=== PATIENT | male | born 1960 | race Asian ===

== ENCOUNTER 2016-02-23 13:42 | Inpatient (IN) | payer MEDICAID ==
[~2016-02-23] VITALS: Ht 177.8 cm; Wt 79.4 kg
[2016-02-23] MEDS ORDERED: PAMELOR10 MG ORAL (13:44)
[2016-02-23] MEDS ORDERED: GLIPIZIDE10 MG PO (13:44)
--- NOTE | 2016-02-23 14:35 | Emergency Room Report ---
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 he felt acutely weak was unable to stay up and fell to the ground He does not think that he had any loss of consciousness There was an abrasion on the right upper eyelid He reports at that happened several days ago when he was at [facility] patient was taken at that time he appeared normal Speaking further he reports several falls intermittently Patient is not quite sure what lead to the fall The last fall was essentially from a trip and fall on a wet floor Today's fall is unclear and essentially secondary to weakness He feels his strength back at this time in both lower extremities however still little bit weaker than usual Denies any fevers or chills denies any chest pain or shortness of breath Allergies: Coded Allergies: No Known Allergies (Unverified , 02/23/16) Patient History Past Medical History: see triage record Pertinent Family History: none Reviewed Nursing Documentation: PMH: Agreed, PSxH: Agreed Nursing Documentation-PMH Hx Diabetes: Yes Review of Systems All Other Systems: negative except mentioned in HPI Physical Exam Vital Signs Date Time Temp Pulse Resp B/P Pulse Ox O2 Delivery O2 Flow Rate FiO2 02/23/16 13:39 97.0 88 16 134/65 100 Room Air Sp02 EP Interpretation: reviewed, normal General Appearance: well appearing, no apparent distress Head: normocephalic, other - Abrasion right upper eyelid Eyes: bilateral eye EOMI, bilateral eye PERRL ENT: hearing grossly normal, normal pharynx, TMs + canals normal, uvula midline Neck: full range of motion, supple, no meningismus, no bony tend Respiratory: lungs clear, normal breath sounds, no rhonchi, no respiratory distress, no retraction, no accessory muscle use Cardiovascular #1: normal peripheral pulses, regular rate, rhythm, no edema, no gallop, no JVD, no murmur Gastrointestinal: normal bowel sounds, non tender, soft, no mass, no organomegaly, non-distended, no guarding, no hernia, no pulsatile mass, no rebound Genitourinary: no CVA tenderness Musculoskeletal: other - Patient able to lift both lower extremities dorsi flex and extend there is some dependent edema in both lower extremities, there appears to be an abrasion on both knees with the patient had a fall today Neurologic: oriented x3, responsive, shredder picker III-XII nml as tested, sensory intact Psychiatric: mood/affect normal Skin: palpation normal, other - as above Lymphatic: normal inspection, no adenopathy Medical Decision Making Diagnostic Impression: Primary Impression: Episode of generalized weakness Additional Impressions: Near syncope Lumbar canal stenosis ER Course Patient is a fairly complex patient with multiple differential to consideration including but not limited to cardiac cardiopulmonary and vascular emergencies Consideration for patient's L. spine pathology is also made given the acute lower extremity weakness Patient has improved significantly he has appropriate mobility of his lower extremity CT making does show some abnormal findings Patient appears to have had several syncopal/near syncopal episodes recently and at this time requires further inpatient care Labs Test 02/23/16 14:20 White Blood Count 5.6 K/UL (4.8-10.8) Red Blood Count 4.43 M/UL (4.70-6.10) Hemoglobin 14.1 G/DL (14.2-18.0) Hematocrit 43.0 % (42.0-52.0) Mean Corpuscular Volume 97 FL (80-99) Mean Corpuscular Hemoglobin 31.8 PG (27.0-31.0) Mean Corpuscular Hemoglobin Concent 32.8 G/DL (32.0-36.0) Red Cell Distribution Width 11.5 % (11.6-14.8) Platelet Count 234 K/UL (150-450) Mean Platelet Volume 6.8 FL (6.5-10.1) Neutrophils (%) (Auto) 70.6 % (45.0-75.0) Lymphocytes (%) (Auto) 21.5 % (20.0-45.0) Monocytes (%) (Auto) 6.1 % (1.0-10.0) Eosinophils (%) (Auto) 1.0 % (0.0-3.0) Basophils (%) (Auto) 0.7 % (0.0-2.0) Prothrombin Time 9.6 SEC (9.30-11.50) Prothromb Time International Ratio 0.9 (0.9-1.1) Activated Partial Thromboplast Time 32 SEC (23-33) Sodium Level 141 mEQ/L (135-145) Potassium Level 4.1 mEQ/L (3.4-4.9) Chloride Level 101 mEQ/L (98-107) Carbon Dioxide Level 25 mEQ/L (20-30) Anion Gap 15 (5-15) Blood Urea Nitrogen 21 mg/dL (7-23) Creatinine 0.7 mg/dL (0.7-1.2) Estimat Glomerular Filtration Rate > 60 mL/min (>60) Glucose Level 139 mg/dL (74-106) Calcium Level 9.0 mg/dL (8.6-10.2) Total Bilirubin < 0.2 mg/dL (0.0-1.2) Aspartate Amino Transf (AST/SGOT) 16 U/L (5-40) Alanine Aminotransferase (ALT/SGPT) 7 U/L (3-41) Alkaline Phosphatase 95 U/L (40-129) Total Creatine Kinase 184 U/L (38-174) Creatine Kinase MB 5.5 ng/mL (< 6.7) Creatine Kinase MB Relative Index 2.9 Troponin I < 0.30 ng/mL (<=0.30) Pro-B-Type Natriuretic Peptide 16 pg/mL (0-125) Total Protein 6.6 g/dL (6.6-8.7) Albumin 4.0 g/dL (3.5-5.2) Globulin 2.6 g/dL Albumin/Globulin Ratio 1.5 (1.0-2.7) Lipase 32 U/L (< 60) Rhythm Strip Diag. Results EP Interpretation: yes Rate: 67 Rhythm: NSR, no PVC's, no ectopy Chest X-Ray Diagnostic Results EP Interpretation: Yes Findings: no consolidation, no effusion, no pneumothorax Number of Views: 1 CT/MRI/US Diagnostic Results CT/MRI/US Diagnostic Results : Impression CT head no acute disease CTL spine: Pen lumbar degenerative spondylosis multilevel stenosis abnormal finding with MRI for further imaging Last Vital Signs Date Time Temp Pulse Resp B/P Pulse Ox O2 Delivery O2 Flow Rate FiO2 02/23/16 13:39 97.0 88 16 134/65 100 Room Air Status: improved Disposition: ADMITTED INPATIENT Condition: Serious RUBEN ALVARADO D.O. Feb 23, 2016 14:35
[2016-02-23 14:39] LABS: BASOPHILS % (AUTO) 0.7 % (0.0-2.0); LYMPHOCYTES % (AUTO) 21.5 % (20.0-45.0); MEAN CORPUSCULAR HEMOGLOBIN 31.8 PG (27.0-31.0); MEAN CORPUSCULAR HGB CONC 32.8 G/DL (32.0-36.0); MEAN CORPUSCULAR VOLUME 97 FL (80-99); MEAN PLATELET VOLUME 6.8 FL (6.5-10.1); MONOCYTES % (AUTO) 6.1 % (1.0-10.0); NEUTROPHILS % (AUTO) 70.6 % (45.0-75.0); PLATELET COUNT 234 K/UL (150-450); RED BLOOD COUNT 4.43 M/UL (4.70-6.10); RED CELL DISTRIBUTION WIDTH 11.5 % (11.6-14.8); WHITE BLOOD COUNT 5.6 K/UL (4.8-10.8)
[2016-02-23 14:47] LABS: INR 0.9 (0.9-1.1); PROTHROMBIN TIME 9.6 SEC (9.30-11.50)
[2016-02-23 15:01] LABS: TROPONIN I < 0.30 ng/mL (<=0.30)
[2016-02-23 15:07] LABS: ALANINE AMINOTRANSFERASE 7 U/L (3-41); ALBUMIN/GLOBULIN RATIO 1.5 (1.0-2.7); ANION GAP 15 (5-15); ASPARTATE AMINO TRANSFERASE 16 U/L (5-40); CARBON DIOXIDE 25 mEQ/L (20-30); CHLORIDE 101 mEQ/L (98-107); CREATININE 0.7 mg/dL (0.7-1.2); GLOMERULAR FILTRATION RATE > 60 mL/min (>60); HEMOLYSIS 11; LIPASE 32 U/L (< 60); POTASSIUM 4.1 mEQ/L (3.4-4.9); SODIUM 141 mEQ/L (135-145); TOTAL PROTEIN 6.6 g/dL (6.6-8.7)
[2016-02-23 15:13] LABS: CKMB 5.5 ng/mL (< 6.7)
[2016-02-23 15:33] VITALS: BP 118/61
--- NOTE | 2016-02-23 15:55 | History & Physical ---
History and Physical History & Physicial HP dictated # [id number] JAZMIN SEXTON Feb 23, 2016 15:55
[2016-02-23 18:30] VITALS: BP 127/80
[2016-02-23] MEDS ORDERED: Norco 5mg/325mg tab ORAL PRN (19:30)
[2016-02-23 20:00] VITALS: BP 121/72
[2016-02-23] MEDS: Norco 10mg/325mg tab ORAL PRN (21:28)
[2016-02-23] MEDS: NovoLOG Insulin Flexpen SUBQ SCH (22:40)
[2016-02-24 00:23] VITALS: BP 122/72
--- NOTE | 2016-02-24 02:17 | History and Physical Report ---
DATE OF ADMISSION: 02/23/2016 CHIEF COMPLAINT: Feeling of passing out and falling. HISTORY OF PRESENT ILLNESS: This is a 55-year-old [place] male, who said that his legs have been giving up and for the past week, he has fallen five times. [place] he was [place] for a taxi, he felt that his legs were giving up and he was about to fall. He could not walk and paramedics were called. The patient was brought into the emergency room. PAST MEDICAL HISTORY: Includes history of diabetes mellitus and depression. MEDICATIONS: Reviewed in EMR. SOCIAL HISTORY: The patient smokes about four cigarettes a day. No history of alcohol abuse. ALLERGIES: No known drug allergies. REVIEW OF SYSTEMS: Noncontributory. PHYSICAL EXAMINATION: GENERAL: The patient is a 55-year-old male, in no acute distress. VITAL SIGNS: Blood pressure is 118/61, pulse 70, and temperature 98.1. HEENT: [place] conjunctivae. Anicteric sclerae. NECK: Supple. LUNGS: Clear to auscultation. HEART: S1 and S2 without murmurs or rubs. ABDOMEN: Soft and nontender. EXTREMITIES: No cyanosis or edema. NEUROLOGICAL: The patient has some involuntary twitching of his legs. LABORATORY FINDINGS: The CBC shows a WBC of 5.6, hematocrit is 43, hemoglobin is 15.1, and platelets 234,000. Chemistry panel shows serum sodium 141, potassium 4.1, chloride 101, CO2 25, BUN 21, creatinine 0.7, blood sugar is 139, and albumin is 4. ASSESSMENT: This is a 55-year-old Romanian male, who was admitted with a feeling of his legs giving up. Differential diagnoses, transient ischemic attack versus peripheral neuropathy from diabetes, orthostatic hypotension has to be ruled out and also a central nervous disorder needs to be ruled out as well. PLAN: The patient will be hydrated with IV fluids. Blood sugar will be checked and adjustment will be made in the patient's regimen. The patient will be seen by neurologist, Dr. Vásquez. Further imaging studies will be ordered as needed. Also, I will check a B12 level and TSH level as a part of workup. Tung Rahban, M.D. DR: ISRAEL JOB#: [id number] CC:
[2016-02-24 04:18] VITALS: BP 124/72
[2016-02-24] MEDS: NovoLOG Insulin Flexpen SUBQ SCH ×4 (06:30→20:31)
[2016-02-24 07:52] VITALS: BP 131/79
--- NOTE | 2016-02-24 10:14 | Diagnostic Imaging Report ---
Indication: Chest pain Technique: Single portable AP view of the chest. Findings: Comparison: None. The bones and extra pulmonary soft tissues, cardiomediastinal silhouette, pulmonary vasculature and parenchyma, and pleural surfaces are unremarkable. IMPRESSION: Negative portable AP chest.
--- NOTE | 2016-02-24 10:17 | Diagnostic Imaging Report ---
Indications: Cephalgia Technique: Continuous helical CT imaging of the brain was performed with automatic exposure control on a Siemens sensation [address] scanner. Axial and coronal images were reconstructed at 5 mm slice thickness and interval. CTDI volume(s): 70 mGy Total DLP: 1432 mGy-cm Findings: Comparison: None. Intracranial anatomy is unremarkable. No evidence of mass or hemorrhage, other attenuation abnormality, mass effect, midline shift, hydrocephalus or increased intracranial pressure. Bone window images are unremarkable. Visualized paranasal sinuses and mastoid air cells are clear. IMPRESSION: Negative noncontrast CT scan of the brain . Written preliminary report placed in PACS 02/23/[address] scanner at [facility] is accredited by the [employer] and the scans are performed using protocols designed to limit radiation exposure to as low as reasonably achievable to attain images of sufficient resolution adequate for diagnostic evaluation.
--- NOTE | 2016-02-24 10:20 | Diagnostic Imaging Report ---
Indications: Low back pain, weakness Technique: Continuous helical CT imaging of the lumbar spine was performed with automatic exposure control on a Siemens sensation [address] scanner. Axial, coronal, and sagittal images were reconstructed at 3 mm slice thicknesses. CTDI volume(s): 13 mGy Total DLP: 393 mGy-cm Findings: Comparison: None Vertebral alignment is intact. No fracture, lytic destruction, facet subluxation or dislocation, paraspinous soft tissue mass/swelling/fluid, or other acute changes are identified. Prominent bridging osteophytes are present at the margins of each disc space without significant narrowing. The facet joints demonstrate varying degrees of hypertrophy and sclerosis. These findings result in apparent narrowing of the spinal canal most severe at L4-5 and to lesser degrees at additional levels, severe neural foraminal narrowing on the left at L5-S1 and to lesser degrees at additional levels. IMPRESSION: No evidence of acute lumbar abnormality Vasquez lumbar degenerative spondylosis with multilevel spinal stenosis most severe at L4-5, neural foraminal narrowing most severe on left at L5-S1. Neural impingement not excludable. Consider MRI for more sensitive evaluation. Written preliminary report placed in PACS 02/23/2016 at 1535
[2016-02-24 12:26] VITALS: BP 133/76
--- NOTE | 2016-02-24 14:33 | Consultation ---
Consult Note Consult Note NEUROLOGY CONSULTATION: Full note dictated #[id number] 55 y/o, RH, KM with PH of DM and gait problems for 5 years for which he uses a cane. He was brought to the [facility] ER on 02/23/16 for frequent falls due to his legs giving way. ON EXAM: Unable to cooperate for MS testing. Paraparesis with spasticity and G 4+/5 in the B - IP. Pathologically brisk DTRs with diminished ankle jerks. Extensor plantar responses bilaterally. CT of brain benign. CT of LS spine with L4-5 and L5-S1 stenosis. 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 Superimposed neuropathy. REC: MRI of C and LS spine. Labs for neuropathy. Pallvai Vásquez M.D., M.S.P.H. PALLAVI VÁSQUEZ Feb 24, 2016 14:33
--- NOTE | 2016-02-24 15:17 | General Progress Note ---
Assessment/Plan Problem List: (1) Weakness of both lower extremities ICD Codes: M62.81 - Muscle weakness (generalized) SNOMED: 0864750 (2) Near syncope ICD Codes: R55 - Syncope and collapse SNOMED: 370753279 (3) DM (diabetes mellitus) ICD Codes: E11.9 - Type 2 diabetes mellitus without complications SNOMED: 83467298 Qualifiers: (4) Depression ICD Codes: F32.9 - Major depressive disorder, single episode, unspecified SNOMED: 35720318 Assessment/Plan Await MRI PT Discussed with RN Subjective Allergies: Coded Allergies: No Known Allergies (Unverified , 02/23/16) Subjective In NAD Objective Last 24 Hour Vital Signs Date Time Temp Pulse Resp B/P Pulse Ox O2 Delivery O2 Flow Rate FiO2 02/24/16 12:26 97.3 66 18 133/76 100 Room Air 02/24/16 12:00 67 02/24/16 08:00 78 02/24/16 07:52 97.0 66 18 131/79 98 Room Air 02/24/16 04:18 97.0 72 20 124/72 98 Room Air 02/24/16 03:45 72 02/24/16 00:23 97.0 74 20 122/72 96 Room Air 02/24/16 00:15 73 02/23/16 21:03 84 02/23/16 20:00 97.8 81 18 121/72 97 Room Air 02/23/16 18:30 98.1 65 20 127/80 95 Room Air 02/23/16 17:24 98.1 78 18 128/61 99 Room Air 02/23/16 15:33 98.1 70 17 118/61 99 Room Air Intake and Output 02/23/16 02/24/16 19:00 07:00 Intake Total 500 ml 1000 ml Output Total 1000 ml Balance 500 ml 0 ml IV Total 1000 ml Other 500 ml Output Urine Total 1000 ml # Voids 2 Height (Feet): 5 Height (Inches): 10.00 Weight (Pounds): 175 Cardiovascular: normal rate Respiratory/Chest: lungs clear JAZMIN SEXTON Feb 24, 2016 15:17
[2016-02-24 16:00] VITALS: BP 149/76
--- NOTE | 2016-02-24 19:37 | Cardiology Report ---
APPROVED REPORT EKG Measurement Heart [id number] CT 136P55 [id number] Normal sinus rhythm Incomplete right bundle branch block Borderline ECG
[2016-02-24 20:00] VITALS: BP 129/68
[2016-02-24] MEDS: Norco 10mg/325mg tab ORAL PRN (23:47)
[2016-02-25 00:37] VITALS: BP_SYST 133
--- NOTE | 2016-02-25 03:58 | Consultation ---
DATE OF CONSULTATION: 02/24/2016 NEUROLOGY CONSULTATION CONSULTING PHYSICIAN: Lyndon Vásquez M.D. REQUESTING PHYSICIAN: Tung Delgadillo M.D. HISTORY: Mr. Stefan Quesada is a 55-year-old, right-handed, Romansh gentleman, who does have a past history of diabetes mellitus and gait problems for the last five years for which he uses a cane. He has been using the cane for about five years because his legs feel weak. Over the years, he has had multiple falls related to lower extremity weakness and recently these falls have become much more frequent. Yesterday, he was apparently [place] [employer] [place] and fell down and was unable to get up and walk again. As a result of that he was brought into the [facility] Emergency Room. Since he has been here, he feels a little better, but he is still quite unsteady on his feet. He does have some low back pain, but denies any significant neck pain or weakness in the upper extremities. He also complains of some altered sensations in his feet. PAST MEDICAL HISTORY: Significant for diabetes mellitus and gait problems. FAMILY HISTORY: Significant for diabetes mellitus in other family members. PERSONAL HISTORY: Home: He lives with family. Work: He is unemployed. Habits: He denies the use of alcohol, tobacco, or illicit drugs. He smokes approximately five cigarettes per day and has been smoking for numerous years. He denies the use of alcohol or illicit drugs. MEDICATIONS: Present medications include: 1. Aspart insulin. 2. Tylenol p.r.n. 3. [place]ot p.r.n. PHYSICAL EXAMINATION: GENERAL: He is a well-developed, well-nourished, pleasant, Romansh gentleman, lying in bed, in no acute distress. VITAL SIGNS: Pulse 66 per minute, blood pressure 133/76 mmHg, respirations 18 per minute, and temperature 97.3 degrees Fahrenheit. HEAD: Normocephalic and atraumatic. EENT: Examination, benign. NECK: No neck rigidity was observed. SPINE: Cervical, thoracic, and lumbosacral spine reveals no tenderness and no paraspinal muscle spasm, but decreased range of motion. NEUROLOGICAL EXAMINATION: MENTAL STATUS EXAMINATION: He was alert and awake. He was oriented to self and hospital. He was unable to cooperate for further mental status testing because of the fact that we were unable to get a Romansh sign language interpreter. SPEECH: He had no dysarthria. LANGUAGE: Could not be tested adequately. CRANIAL NERVE EXAMINATION: II: The visual wadsworth were intact to confrontation testing. III, IV & : The external ocular movements were full and the pupils 3 mm in diameter equal, round, regular, and reactive to light. V: He had normal facial sensations and the temporales, masseters, and pterygoids functioned normally. VII: He had normal facial expressions and no facial asymmetry. VIII: He was able to hear well bilaterally and had no nystagmus. IX: The palate moved symmetrically on phonation. X: He had no hoarseness of voice. XI: The sternocleidomastoids and trapezii functioned normally. XII: The tongue was in the midline without any fasciculations or atrophy. MOTOR SYSTEM: The tone was increased in both lower extremities with significant degree of spasticity. Examination of muscle mass revealed no focal wasting. Examination of power revealed grade 5/5 power, except for grade 4+/5 power in the iliopsoas muscles bilaterally. SENSORY EXAMINATION: He was able to discern between pinprick and light touch, but complained of subjective alteration in calf length stocking distribution. Position sense was normal in the fingers bilaterally, but was diminished in the toes bilaterally. REFLEXES: 2++ and bilaterally symmetrical at the biceps, triceps, and brachioradialis, 3+ at both knees, and 1+ at both ankles. The plantar responses were extensor bilaterally. COORDINATION: He performed well on dppsmy-am-pldy and qeeb-fr-qeve testing. Romberg test could not be performed because even with eyes open when he was made to stand with feet together, he was quite unsteady. STANCE: He stood up with support on one side. GAIT: He walked with support on one side with spastic paraparetic gait. DIAGNOSTIC IMPRESSION: 1. Mr. Stefan Quesada is a 55-year-old, right-handed, Romansh gentleman, who does have a past history of diabetes mellitus and gait problems for the last five years or so. Recently, he has been becoming more unsteady on his feet and has had frequent falls. He was hospitalized after one of these falls. 2. On neurological examination, at this time, he does have a spastic paraparesis, brisk deep tendon reflexes in the upper extremities with pathologically brisk knee jerks and diminished ankle jerks with extensor plantar responses bilaterally. He also has decreased position sense in the toes bilaterally, decreased sensations to pinprick and light touch in calf length stocking distribution bilaterally, a wide-based stance and a spastic paraparetic gait. 3. The CT scan of the brain without contrast performed on 02/22/2015 was benign. 4[address] The CT scan of the lumbosacral spine performed on 02/23/2016 revealed spinal stenosis at L4-L5 and L5-S1 levels. 5. Laboratory data obtained thus far have revealed a relatively normal CBC, a chemistry panel with an elevated blood glucose of 139 and an elevated CK of 184. 6. The patient's history, neurological examination, imaging studies, and laboratory data are most compatible with a spastic paraparesis with a component of spinal intermittent claudication. This is most probably related to cervical and lumbosacral spinal pathology. There is also a superimposed neuropathy which may be related to his diabetes or due to other reasons. RECOMMENDATIONS: 1. An MRI scan of the cervical and lumbosacral spine will be ordered to evaluate the patient for cervical and lumbosacral spine pathology. 2. Laboratory tests will be ordered to evaluate the patient for other treatable causes of neuropathy. 3. The patient should be started on physical and occupational therapy to mobilize him. 4. Depending on the results of the imaging and laboratory data, further recommendations will be given. Thank you for entrusting me with the care of Mr. Quesada. I shall follow him with you. Lyndon Vásquez M.D., M.S.P.H. DR: MATT JOB#: [id number] BEAU
[2016-02-25 04:18] VITALS: BP 122/72
[2016-02-25] MEDS: NovoLOG Insulin Flexpen SUBQ SCH ×4 (06:30→21:00)
[2016-02-25 08:00] VITALS: BP 119/82
[2016-02-25 08:35] LABS: THYROID STIMULATING HORMONE 0.662 uIU/mL (0.300-4.500)
--- NOTE | 2016-02-25 12:24 | General Progress Note ---
Assessment/Plan Problem List: (1) Weakness of both lower extremities ICD Codes: M62.81 - Muscle weakness (generalized) SNOMED: 1857589 (2) Near syncope ICD Codes: R55 - Syncope and collapse SNOMED: 706998076 (3) DM (diabetes mellitus) ICD Codes: E11.9 - Type 2 diabetes mellitus without complications SNOMED: 42932650 Qualifiers: (4) Depression ICD Codes: F32.9 - Major depressive disorder, single episode, unspecified SNOMED: 28024211 Assessment/Plan Await MRI PT Discussed withDr Vásquez Subjective Allergies: Coded Allergies: No Known Allergies (Unverified , 02/23/16) Subjective pt was found on the floor Objective Last 24 Hour Vital Signs Date Time Temp Pulse Resp B/P Pulse Ox O2 Delivery O2 Flow Rate FiO2 02/25/16 08:00 97.2 69 18 119/82 96 Room Air 02/25/16 08:00 97.2 69 18 119/82 96 Room Air 02/25/16 08:00 85 02/25/16 04:18 97.0 67 20 122/72 97 Room Air 02/25/16 04:00 65 02/25/16 00:37 97.0 72 20 133/ 97 Room Air 02/25/16 00:00 95 02/24/16 20:00 98.2 81 19 129/68 98 Room Air 02/24/16 20:00 74 02/24/16 16:00 85 02/24/16 16:00 97.9 78 19 149/76 100 Room Air 02/24/16 12:26 97.3 66 18 133/76 100 Room Air Intake and Output 02/24/16 02/25/16 19:00 07:00 Intake Total 2250 ml 1395 ml Balance 2250 ml 1395 ml Intake Oral 1050 ml 200 ml IV Total 1200 ml 1195 ml # Voids 2 4 Laboratory Tests 02/24/16 15:15: Erythrocyte Sedimentation Rate 9, Hemoglobin A1c 6.3H, Total Protein (PEP) [ Pending], Albumin (PEP) [Pending], Globulin (PEP) [Pending], Albumin/Globulin Ratio [Pending], Euzgd-1-Cxfqwchyq [Pending], Cezac-0-Vrfnpulul [Pending], Beta Globulins [Pending], Beta Gamma Globulin [Pending], PEP Abnormal Protein Bands [ Pending], Protein Electrophoresis Interpret [Pending], Vitamin D 25-Hydroxy [ Pending], 25-Hydroxy Vitamin D2 [Pending], 25-Hydroxy Vitamin D3 [Pending], Folate [Pending], Rapid Plasma Reagin [Pending] 02/25/16 07:10: Vitamin B12 Level 369, Thyroid Stimulating Hormone (TSH) 0.662 Height (Feet): 5 Height (Inches): 10.00 Weight (Pounds): 175 JAZMIN SEXTON Feb 25, 2016 12:24
--- NOTE | 2016-02-25 13:11 | Neurology Progress Note ---
Interim History Interim History Interim History Mr. Quesada feels about the same. His legs continue to be weak. He fell down this morning. He just got back from the MRI - the results are still pending. He denies any new neurologic symptoms. As per his aboriginal community council member he is mentally challenged and has never worked. Review of Systems Neuro Review of Systems Benign. Objective Physical Exam Last Vital Signs Date Time Temp Pulse Resp B/P Pulse Ox O2 Delivery O2 Flow Rate FiO2 02/25/16 08:00 97.2 69 18 119/82 96 Room Air Laboratory Tests Test 02/24/16 15:15 02/25/16 07:10 Erythrocyte Sedimentation Rate 9 MM/HR (0-20) Hemoglobin A1c 6.3 % (< 6.0) H Total Protein (PEP) Pending Albumin (PEP) Pending Globulin (PEP) Pending Albumin/Globulin Ratio Pending Rhozy-0-Fxkydknbv Pending Guhnt-1-Rfviexykr Pending Beta Globulins Pending Beta Gamma Globulin Pending PEP Abnormal Protein Bands Pending Protein Electrophoresis Interpret Pending Vitamin D 25-Hydroxy Pending 25-Hydroxy Vitamin D2 Pending 25-Hydroxy Vitamin D3 Pending Folate Pending Rapid Plasma Reagin Pending Vitamin B12 Level 369 pg/mL (211-946) Thyroid Stimulating Hormone (TSH) 0.662 uIU/mL (0.300-4.500) Neurologic Exam Objective PHYSICAL EXAMINATION: GENERAL: He is a well-developed, well-nourished, pleasant, [place] gentleman, sitting up in a chair, in no acute distress. HEAD: Normocephalic and atraumatic. EENT: Examination, benign. NECK: No neck rigidity was observed. SPINE: Cervical, thoracic, and lumbosacral spine reveals no tenderness and no paraspinal muscle spasm, but decreased range of motion. NEUROLOGICAL EXAMINATION: MENTAL STATUS EXAMINATION: He was alert and awake. He was oriented to self, [facility], and February 2016. SPEECH: He had no dysarthria. LANGUAGE: He had no aphasia in Danish as per his aboriginal community council member. CRANIAL NERVE EXAMINATION: II: The visual wadsworth were intact to confrontation testing. III, IV & : The external ocular movements were full and the pupils 3 mm in diameter equal, round, regular, and reactive to light. V: He had normal facial sensations and the temporales, masseters, and pterygoids functioned normally. VII: He had normal facial expressions and no facial asymmetry. VIII: He was able to hear well bilaterally and had no nystagmus. IX: The palate moved symmetrically on phonation. X: He had no hoarseness of voice. XI: The sternocleidomastoids and trapezii functioned normally. XII: The tongue was in the midline without any fasciculations or atrophy. MOTOR SYSTEM: The tone was increased in both lower extremities with significant degree of spasticity. Examination of muscle mass revealed no focal wasting. Examination of power revealed grade 5/5 power, except for grade 4+/5 power in the iliopsoas muscles bilaterally. SENSORY EXAMINATION: He was able to discern between pinprick and light touch, but complained of subjective alteration in calf length stocking distribution. Position sense was normal in the fingers bilaterally, but was diminished in the toes bilaterally. REFLEXES: 2++ and bilaterally symmetrical at the biceps, triceps, and brachioradialis, 3+ at both knees, and 1+ at both ankles. The plantar responses were extensor bilaterally. COORDINATION: He performed well on xxrxgi-hu-liks and obnv-jn-rhwc testing. Romberg test could not be performed because even with eyes open when he was made to stand with feet together, he was quite unsteady. STANCE: He stood up with support on one side. GAIT: He walked with support on one side with spastic paraparetic gait. Impression/Recommendations Diagnostic Impression 1. Mr. Stefan Quesada is a 55-year-old, right-handed, [place] gentleman, who does have a past history of diabetes mellitus and gait problems for the last five years or so. Recently, he has been becoming more unsteady on his feet and has had frequent falls. He was hospitalized after one of these falls. 2. He feels about the same as yesterday. The legs are still weak and he took a fall this morning. 3. 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 He also has decreased position sense in the toes bilaterally, decreased sensations to pinprick and light touch in calf length stocking distribution bilaterally, a wide-based stance and a spastic paraparetic gait. 4. The CT scan of the brain without contrast performed on 02/22/2015 was benign. 5. The CT scan of the lumbosacral spine performed on 02/23/2016 revealed spinal stenosis at L4-L5 and L5-S1 levels. 6. Laboratory data obtained thus far have revealed a relatively normal CBC, a chemistry panel with an elevated blood glucose of 139 and an elevated CK of 184. His B 12 level is low at 369. 7. The patient's history, neurological examination, imaging studies, and laboratory data are most compatible with a spastic paraparesis with a component of spinal intermittent claudication. This is most probably related to cervical and lumbosacral spinal pathology. 8. There is also a superimposed neuropathy which may be related to his diabetes and B12 deficiency. Recommendations 1. Await results of MRI scan of the cervical and lumbosacral spine - just completed. 2. Vitamin B12 - 1000 mcg SC daily x 3 days and then monthly. 3. Physical and occupational therapy to mobilize him. 4. Await results of other tests. Pallavi Vásquez M.D., M.S.P.PALLAVI BACON Feb 25, 2016 13:11
--- NOTE | 2016-02-25 13:37 | Diagnostic Imaging Report ---
Indications: Neck pain, lower extremity weakness/spastic hemiparesis Technique: Sagittal STIR and T1 weighted fast spin-echo, sagittal and axial T2 weighted fast spin echo, axial COSMIC ASPIR sequences of the cervical spine were performed without IV gadolinium administration. Findings: Comparison: None Motion artifact substantially degrades all images, limiting evaluation. The spinal canal appears diffusely, congenitally narrowed. The C1-C2 level demonstrates mild hypertrophy of the retro-ocular soft tissues.. Occipital-C1 and C1-2 alignments are intact. Spinal canal, lateral recesses and neural foramina not significantly narrowed. The C2-C3 disc is normal in height and signal. No significant annular bulge/protrusion or marginal osteophyte formation. Facet joints and ligamenta flava are unremarkable. Spinal canal, lateral recesses and neural foramina not significantly narrowed. The C3-C4 disc is normal in height and signal. Broad-based central posterior protrusion.. Facet joints and ligamenta flava are unremarkable. Spinal canalnarrowed to 8 mm AP diameter. Spinal cord abutted and displaced posteriorly without overt compression. Right neural foramen moderately to severely narrowed. Lateral recesses mildly narrowed, left greater than right. Left neural foramen is not significantly narrowed. The C4-C5 disc mildly decreased in height. Circumferential annular bulge with mild marginal osteophyte formation.. Facet joints and ligamenta flava are unremarkable. Spinal canalnarrowed to 7 mm AP diameter. Spinal cord is abutted, displaced posteriorly, and mildly compressed. Lateral recesses mildly narrowed.. Neural foramina not significantly narrowed. The C5-C6 disc normal in height.. Circumferential annular bulge with marginal osteophyte formation.. Facet joints and ligamenta flava are unremarkable. Spinal canalnarrowed to 4-5 mm AP diameter. Spinal cord significantly compressed. Lateral recesses and neural foramina mildly narrowed bilaterally.. The C6-C7 disc normal in height.. Circumferential annular bulge, superimposed broad-based posterior protrusion.. Facet joints and ligamenta flava are unremarkable. Spinal canalnarrowed to 3 mm AP diameter. Spinal cord severely compressed. Lateral recesses moderately to severely narrowed bilaterally, left greater than right. Neural foramina not significant narrowing.. The C7-T1 disc is normal in height and signal. Prominent broad-based central posterior protrusion. Facet joints and ligamenta flava are unremarkable. Spinal canalnarrowed to 5 mm AP diameter. Spinal cord significantly compressed. Lateral recesses mildly narrowed bilaterally. Neural foramina are not significantly narrowed.. Spinal cord is difficult to evaluate for signal change due to motion.. No intradural or extradural masses or fluid collections are demonstrated. The cervical vertebrae are normal in configuration and marrow signal characteristics , aside from degenerative changes described above. Lordotic curvature straightened. Vertebral alignment is intact. No fracture, lytic destruction, or other acute process is demonstrated. Paraspinous soft tissues are unremarkable. IMPRESSION: Multilevel severe degenerative disc disease superimposed on congenital spinal stenosis, as described in detail level by level above. This results in multilevel moderate to severe spinal stenosis, multilevel cord compression, lateral recess and neural frontal narrowing as described. Intrinsic spinal cord abnormality difficult to ascertain due to technical limitations described.
[2016-02-25 16:00] VITALS: BP 137/70
[2016-02-25 20:00] VITALS: BP 134/68
[2016-02-26] VITALS: BP 132/73
[2016-02-26] MEDS: Norco 10mg/325mg tab ORAL PRN (00:15)
[2016-02-26 02:28] VITALS: BP 138/78
[2016-02-26] MEDS ORDERED: Norco 10mg/325mg tab ORAL PRN (03:30)
[2016-02-26] MEDS ORDERED: Norco 5mg/325mg tab ORAL PRN (03:30)
[2016-02-26 04:00] VITALS: BP 136/83
[2016-02-26] MEDS: NovoLOG Insulin Flexpen SUBQ SCH ×2 (06:10→12:14)
[2016-02-26 08:09] VITALS: BP 140/63
[2016-02-26 11:11] LABS: A/G RATIO 1.4 (0.7-1.7); ABNORMAL PROTEIN BAND 1 Not Observed g/dL (Not Observed); ALBUMIN 3.7 g/dL (2.9-4.4); ALPHA-1 GLOBULIN 0.2 g/dL (0.0-0.4); ALPHA-2 GLOBULIN 0.5 g/dL (0.4-1.0); BETA GLOBULIN 0.9 g/dL (0.7-1.3); GAMMA GLOBULIN 1.1 g/dL (0.4-1.8); GLOBULIN, TOTAL 2.7 g/dL (2.2-3.9); TOTAL PROTEIN 6.4 g/dL (6.0-8.5)
[2016-02-26 12:07] VITALS: BP 134/67
--- NOTE | 2016-02-26 13:55 | Consultation ---
Consult Note Assessment/Plan Dc dictated # [id number] JAZMIN SEXTON Feb 26, 2016 13:55
--- NOTE | 2016-02-26 15:57 | Diagnostic Imaging Report ---
Indications: Back pain, lower extremity weakness/spastic hemiparesis Technique: Sagittal STIR, sagittal and axial T1 weighted and T2 weighted fast spin echo sequences of the lumbar spine were performed without IV gadolinium administration. Findings: Comparison: None Motion artifact degrades all images, limiting evaluation. The L1-2 disc is normal in height and signal. Mild circumferential annular bulge, anterior margin osteophyte formation.. Facet joints and ligamenta flava mildly hypertrophied.. Spinal canal, lateral recesses and neural foramina are normal in caliber. The L2-3 disc normal height, decreased signal. Mild circumferential annular bulge, anterior margin osteophyte formation.. Facet joints and ligamenta flava moderately hypertrophied.. Spinal canalnarrowed to 10 mm AP diameter. Lateral recesses mildly narrowed. Neural foramina are normal in caliber. The L3-4 disc mildly decreased in height, heterogeneous in signal. Prominent focal area of T2 signal hyperintensity and age-appropriate disc.. Mild circumferential annular bulge.. Facet joints and ligamenta flava mildly hypertrophied. Spinal canal, neural foramina normal caliber. Lateral recesses mildly narrowed.. The L4-L5 disc normal height, decreased signal. Circumferential annular bulge with marginal osteophyte formation.. Facet joints and ligamenta flava mildly hypertrophied, right greater than left.. Spinal canalnormal caliber. Lateral recesses, neural foramina moderately narrowed bilaterally.. The L5-S1 disc is normal in height and signal. Mild circumferential annular bulge.. Facet joints and ligamenta flava are mildly hypertrophied.. Spinal canalnormal caliber. Lateral recesses mildly, neural foramina moderately narrowed bilaterally. . Spinal cord ends at T12-L1. Conus medullaris, cauda equina, remainder of thecal sac contents intrinsically unremarkable. No intradural or extradural masses or fluid collections are demonstrated. The lumbar vertebrae are normal in configuration and marrow signal characteristics , aside from degenerative changes described above. No fracture, lytic destruction, or other acute process is demonstrated. Paraspinous soft tissues are unremarkable. IMPRESSION: Vasquez lumbar degenerative disc disease, facet and ligamentous hypertrophy as described in detail level by level above. Associated grade 3 annular tear at L3-4 No significant spinal stenosis Multilevel lateral recess and neural foraminal narrowing as described above. Impingement upon one or more descending/exiting nerve roots should be considered. Correlate clinically.
[2016-02-26 16:00] VITALS: BP 123/67
--- NOTE | 2016-02-27 03:47 | Discharge Summary ---
DATE OF ADMISSION: 02/23/2016 DATE OF DISCHARGE: 02/26/2016 CHIEF COMPLAINT: Feeling of falling. HISTORY OF PRESENT ILLNESS: This is a 55-year-old Maced[place] male who was admitted for frequent falls. For the details, please refer to History and Physical. HOSPITAL COURSE: The patient was seen by Dr. Lyndon Vásquez in neurology consultation. His impression was the patient had a spastic paraparesis. An MRI of the neck was ordered and significant findings were that there was multiple narrowing of the spinal cord at C3-C4. There was spinal canal narrowed to 8 mm and there was the AP diameter of the spinal cord abutted and displaced posteriorly without overt compression. Right neural foramen [id number]-yz-[id number] narrowed. Lateral recess was mildly narrowed, left greater than right. Left neural foramen was not significantly narrowed at C4-C5. This mildly decreased in height. There was a spinal cord narrowing to 7 mm AP diameter, small spinal cord was abutted, displaced posteriorly, it might be compressed. Lateral recess was mildly narrowed. Neural foramen was not significantly narrowed at C5-C6. There was annular bulge with marginal osteophyte formation. The spinal canal narrowed to 4-5 mm. AP diameter of spinal cord was significantly compressed. Lateral recesses and neural foramen were mildly narrowed bilaterally at C6-C7. There was circumferential annular bulge, superimposed broad-based posterior protrusion. Spinal canal was narrowed to 3 mm AP diameter and spinal cord severely compressed. The lateral recesses was nbjlkdtgjw-ab-cusdlj narrowed bilaterally, left greater than right. Neural foramen was not significantly narrowed at C7 and T1. There was also prominent broad-based central posterior protrusion. Spinal canal narrowed to 5 mm AP diameter. Spinal cord severely compressed. Lateral recess might be narrowed bilaterally. Neural foramen were not significantly narrowed. So, the patient basically had multiple levels of spinal narrowing and it was felt that the neurological symptoms were related to that. This was discussed with the patient in the presence of his mother with a Macedonian nurse aide evaluator. So, I talked to the nephew who speaks [place] on the phone and explained that the patient would need surgery to prevent further damage to the spinal cord and I suggested they go to the [facility] , neurosurgical department. A copy of his MRI will be provided to them. DISCHARGE DIAGNOSIS: Difficulty with walking and frequent falls, as a result of a spastic paraparesis, as a result of the multiple levels of cervical cord narrowing as described. Tung Delgadillo M.D. DR: KATE JOB#: [id number] CC: BEAU
[2016-02-27 20:13] LABS: VITAMIN D 25-OH TOTAL 13 ng/mL (.)
== END 2016-02-26 16:30 | disposition home or self-care (01) | DRG 347 ==
LOC: EDBD 13:42 → EMR 14:46 → 3E 15:00 → EDBEDREQ 15:39 → 2E 20:19 → 4E 02-26 01:57
DX: M48.02 Spinal stenosis, cervical region (principal); G82.20 Paraplegia, unspecified; E11.40 Type 2 diabetes mellitus with diabetic neuropathy, unspecified; Z91.81 History of falling; Z72.0 Tobacco use; F32.9 Major depressive disorder, single episode, unspecified; E53.8 Deficiency of other specified B group vitamins; G95.29 Other cord compression; Z79.4 Long term (current) use of insulin
CPT/HCPCS: 36415; 70450; 71010; 72131; 72141; 72148; 80053; 82306; 82550; 82553; 82607; 82746; 82962; 83036; 83690; 83880; 84165; 84443; 84484; 85025; 85610; 85651; 85730; 86592; 87040; 93005; J1815; J2405

== ENCOUNTER → 2018-11-09 | Emergency (ER) | payer MEDICAID ==
[~2018-11-09] VITALS: Ht 170.2 cm; Wt 74.8 kg
[~2018-11-09] MED LIST: Bacitracin Oint UD TOPIC ONE; GLIPIZIDE10 MG PO; Lidocaine 1% 10mg/ml/Epi 0.005mg/ml 10ml vial INJ ONE; PAMELOR10 MG ORAL; Tetanus/Diptheria/Pertussis IM ONE
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
[2018-11-09 08:00] VITALS: BP 128/79
--- NOTE | 2018-11-09 09:18 | NUR ---
ED Nurse Note: [employer] at the bed side. Officer Guillaume.
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
--- NOTE | 2018-11-09 11:05 | NUR ---
ED Nurse Note: RN cleansed wound with NS irrigation to removed debris. Dr Valdez at the bed side.
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
--- NOTE | 2018-11-09 11:30 | NUR ---
ED Nurse Note: RN applied bacitracin to wound base then covered with non stick dressing and secured with tape.
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
== END | disposition home or self-care (01) ==
LOC: EDUNIT# 07:01 → EDBD 07:09 → EMR 07:50
DX: S01.81XA Laceration without foreign body of other part of head, initial encounter (principal); S09.90XA Unspecified injury of head, initial encounter; E11.9 Type 2 diabetes mellitus without complications; E78.5 Hyperlipidemia, unspecified; I10 Essential (primary) hypertension; Z23 Encounter for immunization; M50.21 Other cervical disc displacement, high cervical region; M79.605 Pain in left leg; Z98.1 Arthrodesis status; Y04.2XXA Assault by strike against or bumped into by another person, initial encounter; Y92.099 Unspecified place in other non-institutional residence as the place of occurrence of the external cause
CPT/HCPCS: 12014; 70450; 70486; 72125; 73552; 90471; 90715; Z7502; 99284